=== PATIENT | male | born 1990 | race Caucasian/White ===

== ENCOUNTER → 2018-08-14 12:06 | Outpatient (CLI) | payer OTHER, SELFPAY ==
--- NOTE | 2018-08-14 12:13 | RAD_ITS ---
STUDY: X-RAY - RIGHT WRIST REASON FOR EXAM: Male, 27 years old. Fall on hand 2 days ago with injury. TECHNIQUE: 3 view(s) of the wrist were obtained. COMPARISON: None. FINDINGS: Normal visualized distal radius and ulna. Normal radiocarpal articulation. Normal distal radioulnar articulation. Normal carpal bones. Normal carpal articulations. Normal carpometacarpal articulation of the thumb. Normal second through fifth carpometacarpal articulations. Normal visualized metacarpal bones. There is borderline anterior soft tissue swelling. There is no demonstrated acute fracture. RAD/Wrist min 3 Views IMPRESSION: Borderline anterior soft tissue swelling. No acute fracture of the right wrist. Electronically Signed: Srinivasa Chicas MD at 19:52 EDT , Service support ,
--- NOTE | 2018-08-14 12:13 | RAD_ITS ---
STUDY: X-RAY - RIGHT HAND REASON FOR EXAM: Male, 27 years old. Fall on hand 2 days ago with injury. TECHNIQUE: 3 view(s) of the hand. COMPARISON: None. FINDINGS: Normal radiocarpal articulation. Normal distal radioulnar joint. Normal visualized carpal bones. Normal carpal articulations Normal carpometacarpal articulation of the thumb. Normal second through fifth carpometacarpal joints. Normal metacarpi. Normal metacarpophalangeal joint of the thumb. Normal interphalangeal joint of the thumb. Normal proximal and distal phalanges of the thumb. Normal metacarpophalangeal joints of the second through fifth fingers. Normal proximal and distal interphalangeal joints of the second through fifth fingers. Normal phalanges of the second through fifth fingers. Mild soft tissue swelling of the hand is suggested. There is no demonstrated acute fracture. RAD/Hand Min 3 Views IMPRESSION: Mild soft tissue swelling of the right hand. There is no demonstrated acute fracture. Electronically Signed: Srinivasa Chicas MD at 19:52 EDT , Service support ,
== END ==
PROVIDERS: Family Provider Family Medicine; PCP Family Medicine; Referring Provider Family Medicine; Visit Provider Family Medicine
DX: M25.531 Pain in right wrist (principal)
CPT/HCPCS: 73110; 73130

== ENCOUNTER 2021-06-30 20:34 | Emergency (ER) | payer MEDICAID, SELFPAY ==
[2021-06-30] VITALS (8 sets, daily range): BP systolic 119–148; BP diastolic 71–90; PULSE 87–97; RESP 16–22; TEMP 36.6; O2SAT 93–99; BMI 24.6
[2021-06-30] MEDS: Midazolam 2 MG/2 ML Syringe IV ×3 (20:41→23:24)
--- NOTE | 2021-06-30 20:41 | EKG12_ITS ---
Test Reason : DYSRHYTHMIA Blood Pressure : / mmHG Vent. Rate : 085 BPM Atrial Rate : 085 BPM P-R Int : 188 ms QRS Dur : 104 ms QT Int : 404 ms P-R-T Axes : 074 -45 060 degrees QTc Int : 480 ms Normal sinus rhythm Left anterior fascicular block Prolonged QT Abnormal ECG Confirmed by OC MCKEON, LALA ([id number]), commercial production editor [place] ([id number]) on 07/02/2021 9:08:03 AM Referred By: MATTHEW Confirmed By:LALA RENAE MD
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
[2021-06-30 21:17] LABS: Absolute Lymphocyte Count 2.96 X10^3/uL (0.83-4.51); Absolute Neutrophil Count 4.1 X10^3/uL (2.0-7.7); Basophil# 0.04 X10^3/uL; Basophil% 0.5 % (0-1); Eosinophil# 0.15 X10^3/uL; Eosinophils% 1.9 % (0-5); Hematocrit 40.3 % (40-54); Lymphocyte # 2.96 X10^3/ul (0.83-4.51); Lymphocyte % 37.2 % (19-41); Mean Corp Hgb Conc 34.7 g/dL (32-36); Mean Corpuscular Hgb 31.7 pg (27.0-32.0); Mean Corpuscular Volume 91.2 fL (80-94); Mean Platelet Vol. 9.8 fl (6.2-12.0); Monocyte# 0.69 X10^3/uL; Monocyte% 8.7 % (0-10); NRBC Flagged by Analyzer 0 % (0-5); Neutrophil # 4.05 X10^3/uL (2.7-7.7); Neutrophil % 50.9 % (47-70); Platelet Count 251 K/mm3 (150-450); RBC Distribution Width CV 12.3 % (11.6-14.6); RBC Distribution Width SD 41.1 fl (35.1-43.9); Red Blood Count 4.42 M/mm3 (4.6-6.2)
[2021-06-30 21:30] LABS: International Normalized Ratio 1.1; Partial Thromboplast Time 23.9 Seconds (24.1-36.2); Prothrombin Time (Protime)PT. 13.3 SECONDS (11.7-14.9)
[2021-06-30 21:41] LABS: Anion Gap 9 (5-15); BUN 8 mg/dL (7-18); BUN/Creat Ratio 10.4 RATIO (10-20); Calcium,Total 7.8 mg/dL (8.5-10.1); Chloride 107 mmol/L (98-107); Creatinine, Serum 0.77 mg/dL (0.70-1.30); EST Glomerular Filtration Rate 126 mL/min (>60); Est Glom Filt Rate - Afr Amer 153 mL/min (>60); Estimated Creatinine Clearance 155.37 ml/min; Glucose 95 mg/dL (74-106); Potassium 2.7 mmol/L (3.5-5.1); Sodium Level 141 mmol/L (136-145)
[2021-06-30] MEDS: 0.9% Normal Saline 1,000 ML 999 ML IV (21:46)
--- NOTE | 2021-06-30 22:21 | ED.RN ---
DR. KRAMER MADE AWARE SEVERAL TIMES THAT FAMILY WAS REQUESTING UPDATE. REPORTS I'LL BE IN.
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
== END 2021-06-30 23:58 | disposition short-term general hospital (02) ==
PROVIDERS: Emergency Provider Emergency Medicine; PCP Family Medicine
DX: S06.350A Traumatic hemorrhage of left cerebrum without loss of consciousness, initial encounter (principal); F10.129 Alcohol abuse with intoxication, unspecified; Y90.3 Blood alcohol level of 60-79 mg/100 ml; V48.0XXA Car driver injured in noncollision transport accident in nontraffic accident, initial encounter; Y93.I9 Activity, other involving external motion; Y92.410 Unspecified street and highway as the place of occurrence of the external cause; Y99.8 Other external cause status
CPT/HCPCS: 51702; 70450; 71260; 72125; 74177; 80048; 82077; 85025; 85610; 85730; 93005; 96361; 96374; 96376; 99285; Q9967; A4216

== ENCOUNTER 2021-09-16 15:30 | Outpatient (RCR) | payer MEDICAID, SELFPAY ==
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
--- NOTE | 2021-09-16 15:50 | HP.OTDCSUM_ITS ---
It has been my pleasure to treat ERUM RUSH under orders from ANIRUDH SKAGGS, for the diagnosis of TBA for a total of 6 visit(s). Please see the following information for a summary of their discharge status. % Improvement: 75 Objective/Function: pt demo a increase in left telecom specialist strength to 120# this is 20# increase. left lateral pinch 18# this is increase from 12#. left tripod pinch 16# this is increase from 12#. left tip pinch 10# this is increase from 8#. right MMT 5/5 left 4+/5. pt has made gains in OT and Patient Goals: Regain Strength, Be More Independent in ADLS, Resume Hobbies Goal:: pt will demo increase in left telecom specialist strength to 120# or greater to return to work by d/c. pt will demo a increase in BUE MMT to 5/5 to increase pts ind. with lifting work and daily home mtg. tasks by d.c Goal:: pt will report the ability to perform laundry, cooking and cleaning tasks at [facility] by D/c Plan: cont with OT POC, further progress TE and educate pt. on proper approach to completion ex program Discharge Comments: pt was seen for 6 OT sessions to increase pts functional strength - pt has done great and has met OT goals. Pt is D/c at this time. If there are questions or concerns regarding this patient's occupational therapy, please fell free to call me at [phone]. Thank you for the referral of this patient. Sincerely, Navya Ortiz, OTR/L, CHT
--- NOTE | 2021-09-30 15:23 | HP.SP.DC_ITS ---
ST Discharge Summary - Discharged: Discharge: Jacky Saba is discharged from speech therapy at [facility] as of 09/16/21. He was treated for four visits following his evaluation on 08/12/21. He was evaluated using subtests from [employer]. He completed 3 subtests with accuracy scores all within appropriate limits. One subtest needed cues for rationale score, however, he was able to provide answers more so verbally than in written form. When asked for clarification he was able to provide all appropriate answers. The subtests were making a decision, building a case, and planning an event. All tasks required reading to evaluate information and then determine next steps. 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 His only complaint was that he sat down more in the evenings rather seeming to ?always be on the go?. No further therapy is warranted at this time. Thank you for allowing me to participate in the care of this patient.
== END 2021-09-16 19:00 | disposition home or self-care (01) ==
LOC: OT 15:30
PROVIDERS: PCP Family Medicine
DX: S06.9X0D Unspecified intracranial injury without loss of consciousness, subsequent encounter (principal); S06.5X0D Traumatic subdural hemorrhage without loss of consciousness, subsequent encounter; X58.XXXD Exposure to other specified factors, subsequent encounter; R45.1 Restlessness and agitation; R41.2 Retrograde amnesia; F10.10 Alcohol abuse, uncomplicated
CPT/HCPCS: 92507; 92523; 97110; 97166; 97530